=== PATIENT | male | born 1990 | race Caucasian/White ===

== ENCOUNTER 2020-02-21 20:05 | Emergency (ER) | payer OTHER ==
[~2020-02-21] VITALS: Ht 175.3 cm; Wt 86.4 kg
[2020-02-21 20:26] LABS: BASOPHILS # (AUTO) 0.1 X10'3 (0-0.2); BASOPHILS % (AUTO) 0.6 % (0-1); EOSINOPHILS # (AUTO) 0.1 X10'3 (0-0.9); EOSINOPHILS % (AUTO) 0.6 % (0-6); HEMATOCRIT 46.4 % (42.0-52.0); HEMOGLOBIN 15.7 g/dl (14.0-17.9); LYMPHOCYTES # (AUTO) 2.2 X10'3 (1.1-4.8); LYMPHOCYTES % (AUTO) 21.8 % (21-51); MEAN CORPUSCULAR HEMOGLOBIN 32.4 PG (27.0-31.0); MEAN CORPUSCULAR HGB CONC 33.8 g/dL (33.0-36.5); MEAN CORPUSCULAR VOLUME 95.6 FL (78-98); MEAN PLATELET VOLUME 8.6 FL (7.4-10.4); MONOCYTES # (AUTO) 0.8 X10'3 (0-0.9); MONOCYTES % (AUTO) 8.1 % (2-12); NEUTROPHILS % (AUTO) 68.9 % (42-75); PLATELET COUNT 241 X10'3 (140-440); RED BLOOD COUNT 4.85 X10'6 (4.70-6.10); RED CELL DISTRIBUTION WIDTH 13.5 % (11.5-14.5); WHITE BLOOD COUNT 10.1 X10'3 (4.5-11.0)
--- NOTE | 2020-02-21 20:27 | NUR ---
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
[2020-02-21 20:40] LABS: ALANINE AMINOTRANSFERASE 41 U/L (12-78); ALBUMIN 4.3 G/DL (3.4-5.0); ALBUMIN/GLOBULIN RATIO 1.2 (1.1-1.5); ALKALINE PHOSPHATASE 81 IU/L (46-116); ANION GAP 12 (8-16); ASPARTATE AMINO TRANSFERASE 23 U/L (10-37); BILIRUBIN,TOTAL 0.5 MG/DL (0.1-1.0); BLOOD UREA NITROGEN 19 MG/DL (7-18); BUN/CREATININE RATIO 15.1 (5.4-32.0); CALCIUM 9.2 MG/DL (8.5-10.1); CHLORIDE 105 MMOL/L (99-107); CREATININE 1.26 MG/DL (0.60-1.10); GLUCOSE 97 MG/DL (70-104); POTASSIUM 3.8 MMOL/L (3.5-5.1); SODIUM 140 MMOL/L (135-145); TOTAL PROTEIN 7.8 G/DL (6.4-8.2); eGFR 68 ML/MIN
[2020-02-21] MEDS ORDERED: normal saline 1000ML IV soln IVB ONE (21:05)
[2020-02-21] MEDS ORDERED: LORazepam 1 MG tablet PO ONE (21:05)
[2020-02-21] MEDS ORDERED: ketorolac tromethamine 15mg/ml inj. IV ONE (21:25)
--- NOTE | 2020-02-21 22:15 | NUR ---
Fidel WHITESIDE [employer] SPECIALIST AWARE PT'S HEART RATE 40-50S, PT SAID HIS HR IS NORMALLY THAT LOW, NO C/O DIZZINESS, AMB WITH STEADY GAIT,
[2020-02-21 22:27] VITALS: BP 131/66
== END 2020-02-21 22:25 | disposition home or self-care (01) ==
LOC: ER 20:06
DX: R07.9 Chest pain, unspecified (principal); F17.200 Nicotine dependence, unspecified, uncomplicated; Z90.89 Acquired absence of other organs; Z88.0 Allergy status to penicillin
CPT/HCPCS: 36415; 71045; 80053; 84484; 85025; 93005; 96374; 99285; J1885; J7030